=== PATIENT | male | born 1930 | race Caucasian/White ===

== ENCOUNTER 2020-08-16 11:58 | Inpatient (IN) | payer OTHER, MEDICARE, BC ==
[~2020-08-16] VITALS: Ht 182.9 cm; Wt 65.9 kg
[~2020-08-16 11:58] MED LIST: ALDACTONE25 MG PO; ASPIRIN81 MG PO; HYDROCHLOROTH12.5 MG PO; LASIX20 MG PO; LEVAQUIN500 MG PO; LIPITOR TAB 2020 MG PO; LISINOPRIL2.5 MG PO; LUNESTA3 MG PO; PROAIR HFA8.5 GM INH; PULMICORT FLEX90 MCG INH; TOPROL XL25 MG PO
[2020-08-16 12:49] LABS: HEMOGLOBIN 9.6 gm/dl (14.0-17.5); RED BLOOD COUNT 2.86 M/UL (4.20-5.50); WHITE BLOOD COUNT 11.8 K/UL (4.5-11.0)
[2020-08-16] MEDS ORDERED: ELIQUIS 5 MG TAB5 MG PO (22:14)
[2020-08-16] MEDS ORDERED: VALTREX1000 MG PO (22:16)
[2020-08-16] MEDS ORDERED: DEMADEX 20 MG T20 MG PO (22:20)
[2020-08-16] MEDS ORDERED: FLOMAX 0.4 MG0.4 MG PO (22:22)
[2020-08-16] MEDS ORDERED: ERYTHROMYCIN O3.5 GM EYELF (22:22)
[2020-08-16] MEDS ORDERED: DESYREL 50 MG T50 MG PO (22:25)
[2020-08-16] MEDS ORDERED: MIRALAX17 GM PO (22:26)
[2020-08-16 22:56] LABS: HEMOGLOBIN 8.9 gm/dl (14.0-17.5)
[2020-08-17 06:15] LABS: HEMOGLOBIN 9.4 gm/dl (14.0-17.5); RED BLOOD COUNT 2.82 M/UL (4.20-5.50); WHITE BLOOD COUNT 11.4 K/UL (4.5-11.0)
[2020-08-17 09:57] LABS: HEMOGLOBIN 9.8 gm/dl (14.0-17.5)
[2020-08-17 15:40] LABS: HEMOGLOBIN 9.4 gm/dl (14.0-17.5)
[2020-08-18 04:03] LABS: HEMOGLOBIN 9.1 gm/dl (14.0-17.5); RED BLOOD COUNT 2.7 M/UL (4.20-5.50); WHITE BLOOD COUNT 9.3 K/UL (4.5-11.0)
[2020-08-19 06:55] LABS: RED BLOOD COUNT 2.64 M/UL (4.20-5.50); WHITE BLOOD COUNT 7.3 K/UL (4.5-11.0)
[2020-08-20 05:06] LABS: HEMOGLOBIN 9.3 gm/dl (14.0-17.5); RED BLOOD COUNT 2.78 M/UL (4.20-5.50)
[2020-08-20 05:07] LABS: WHITE BLOOD COUNT 9.7 K/UL (4.5-11.0)
[2020-08-20 05:32] LABS: BUN/CREATININE RATIO 50 (0-10)
[2020-08-21 05:14] LABS: HEMOGLOBIN 9.8 gm/dl (14.0-17.5); RED BLOOD COUNT 2.82 M/UL (4.20-5.50); WHITE BLOOD COUNT 9.4 K/UL (4.5-11.0)
[2020-08-21 05:38] LABS: BUN/CREATININE RATIO 42 (0-10)
[2020-08-22 03:47] LABS: HEMOGLOBIN 10.1 gm/dl (14.0-17.5); RED BLOOD COUNT 2.93 M/UL (4.20-5.50); WHITE BLOOD COUNT 10.8 K/UL (4.5-11.0)
[2020-08-22 04:11] LABS: BUN/CREATININE RATIO 42 (0-10)
--- NOTE | 2020-08-22 14:26 | NUR ---
ASSISTING PATIENT AND TECH WHILE REGULAR NURSE IS IN AT LUNCH. DAUGHTER "MARKUS" IS VERY UPSET AND ANGRY BECAUSE PATIENT IS CONFUSED AND WANTS HIM TO HAVE A SEDATIVE, ALTHOUGH PATIENT HAS HAD SEVERAL THINGS TODAY ALREADY. PATIENT CHANGED WITH SHEA IN ROOM WELL, APPLIED BP CUFF, LEFT TELE OFF AND GOWN OFF D/T AGITATION. ANNIE BECOMES AGITATED BECAUSE SHE WAS ASKED TO SIT BESIDE PATIENT AND TALK WITH HIM, HE IS TRYING TO SPEAK WITH HER BUT SHE IGNORES HIM AND DOES NOT ANSWER. DAUGHTER BECOMES MORE AGITATED BECAUSE OF BEING ASKED TO DO THIS. SPRINKL[facility] HELPER CALLED.
[2020-08-23 02:57] LABS: HEMOGLOBIN 10.2 gm/dl (14.0-17.5); RED BLOOD COUNT 2.97 M/UL (4.20-5.50); WHITE BLOOD COUNT 9.8 K/UL (4.5-11.0)
--- NOTE | 2020-08-23 18:27 | NUR ---
STRIGHT CATH PATIENT GOT 350 MLS OUT OF PATIENT.
[2020-08-24 04:11] LABS: BUN/CREATININE RATIO 41 (0-10)
[2020-08-25 02:42] LABS: HEMOGLOBIN 10.2 gm/dl (14.0-17.5); RED BLOOD COUNT 2.96 M/UL (4.20-5.50); WHITE BLOOD COUNT 8.5 K/UL (4.5-11.0)
[2020-08-25 03:05] LABS: BUN/CREATININE RATIO 41 (0-10)
[2020-08-26 07:56] LABS: BUN/CREATININE RATIO 38 (0-10)
[2020-08-30] MEDS ORDERED: ATIVAN0.5 MG PO (17:18)
[2020-08-30] MEDS ORDERED: TRANSDERM-SCOP1 EACH TOP (17:18)
--- NOTE | 2020-08-31 02:45 | NUR ---
PT DISCOVERED TO HAVE NO AUSCLTATED BREATH SOUNDS AND ABSENCE OF HEART BEAT AT 0200 BY JULIO MAURICIO RN AND SHAKIRA GARIBAY RN. SON AT BEDSIDE AND NOTIFIED. AND EVENT COORDINATOR MARKETING AND SALES NOTIFIED. [facility] CALLED. SEE EXPIRATION RECORD FOR MORE INFO.
== END 2020-08-31 02:00 | disposition expired | DRG 871 ==
LOC: ER1 11:58 → PROG CARE 16:58 → CDU 16:58 → CCU 08-17 02:43 → PROG CARE 08-21 13:53 → MED SURG 4 08-29 20:57
PROVIDERS: Internal Medicine; Physician Assistant Medical; ADMIT Family Medicine
PROC: 30233N1 Transfusion of Nonautologous Red Blood Cells into Peripheral Vein, Percutaneous Approach (ICD-10-PCS; 2020-08-16)
PROC: B24BZZZ Ultrasonography of Heart with Aorta (ICD-10-PCS; principal; 2020-08-17)
DX: A41.9 Sepsis, unspecified organism (principal); R65.21 Severe sepsis with septic shock; I50.23 Acute on chronic systolic (congestive) heart failure; N17.9 Acute kidney failure, unspecified; N13.2 Hydronephrosis with renal and ureteral calculous obstruction; J96.11 Chronic respiratory failure with hypoxia; E87.2 Acidosis; D62 Acute posthemorrhagic anemia; I42.9 Cardiomyopathy, unspecified; N30.00 Acute cystitis without hematuria; E87.0 Hyperosmolality and hypernatremia; Z66 Do not resuscitate; Z51.5 Encounter for palliative care; Z20.822 Contact with and (suspected) exposure to COVID-19; K56.41 Fecal impaction; N32.0 Bladder-neck obstruction; I48.91 Unspecified atrial fibrillation; R57.1 Hypovolemic shock; R77.8 Other specified abnormalities of plasma proteins; I95.9 Hypotension, unspecified; N28.1 Cyst of kidney, acquired; D69.6 Thrombocytopenia, unspecified; L89.152 Pressure ulcer of sacral region, stage 2; K27.9 Peptic ulcer, site unspecified, unspecified as acute or chronic, without hemorrhage or perforation; B02.9 Zoster without complications; E87.6 Hypokalemia; K52.9 Noninfective gastroenteritis and colitis, unspecified; J44.9 Chronic obstructive pulmonary disease, unspecified; Z90.49 Acquired absence of other specified parts of digestive tract; Z99.81 Dependence on supplemental oxygen; Z79.01 Long term (current) use of anticoagulants; Z79.899 Other long term (current) drug therapy
CPT/HCPCS: ECHO; 36415; 36430; 51702; 71045; 73600; 80048; 80053; 81001; 82272; 82550; 82553; 83605; 83690; 83735; 83874; 83880; 84100; 84484; 85014; 85018; 85025; 85027; 85610; 85730; 86850; 86900; 86901; 86920; 87040; 92610; 93005; 93306; 96365; 96367; 96376; 97162; 99285; A6212; C9113; C9132; G0378; J0696; J1250; J1630; J1885; J2020; J2060; J2270; J7030; J7050; P9016; U0002